=== PATIENT | female | born 1975 | race Caucasian/White ===

== ENCOUNTER 2019-03-13 09:19 | Outpatient (CLI) | payer MEDICAID ==
--- NOTE | 2019-03-13 17:50 | ANES ---
DATE OF SERVICE: 03/13/2019 INDICATION: Mrs. Osborne is a 43-year-old female patient, referred to the [facility] to us by Angelique Brennan. She is here today for trigger points. Please see the orders for the patient's preprocedure diagnosis as well as ICD-10 code. The risks and benefits of the procedure were explained to the patient. She wished to proceed with trigger point injections. TECHNIQUE: I did find 21 noticeable lumbosacral trigger points. I injected each of these with 1 to 2 mL of 0.5% Sensorcaine. I did inject more than 3 muscle groups. Her vital signs remained stable throughout the procedure and nurse was with me for the entire procedure. There were no anesthesia complications noted. She is going to return in 2 weeks for trigger point injections. She was discharged from the [facility] per protocol. Gavin Sharp CRNA /[id number]
== END 2019-03-13 10:07 | disposition home or self-care (01) ==
LOC: JP.PAIN 09:19
DX: M79.10 Myalgia, unspecified site (principal)
CPT/HCPCS: 20553

== ENCOUNTER 2019-04-16 05:18 | Emergency (ER) | payer MEDICAID ==
[2019-04-16 05:32] VITALS: BP 120/77
[2019-04-16] MEDS ORDERED: Cyclobenzaprine 10 MG Tab PO ONE (05:46)
[2019-04-16] MEDS ORDERED: Ketorolac 60 MG/2 ML SDV IM ONE (05:46)
--- NOTE | 2019-04-16 05:53 | EDM.PDOC ---
ED HPI GENERAL MEDICAL PROBLEM - General Chief Complaint: ENT Problem Stated Complaint: RIGHT NECK/THROAT PAIN Time Seen by Provider: 04/16/19 05:42 Source of Information: Reports: Patient, RN Notes Reviewed History Limitations: Reports: No Limitations - History of Present Illness INITIAL COMMENTS - FREE TEXT/NARRATIVE: 44-year-old female presents emergency department today complaint of right-sided neck pain that radiates up into the ear, she has had this going on for about 1 day. Denies any fevers trauma nausea vomiting shortness of breath chest pain had an event similar to this last year unknown etiology Right Ear Pain Score (Numeric/FACES): 7 - Related Data Allergies Allergy/AdvReac Type Severity Reaction Status Date / Time Penicillins Allergy Unknown Rash Verified 03/13/19 09:44 Home Meds: Home Meds Ibuprofen 600 mg PO BID 11/18/15 [History] Cyclobenzaprine [Flexeril] 10 mg PO TID PRN #20 tab 04/16/19 [Rx] Ketorolac [Toradol] 10 mg PO TID PRN #20 tab 04/16/19 [Rx] Past Medical History Musculoskeletal History: Reports: Arthritis, Fibromyalgia, RA Hematologic History: Reports: Iron Deficiency - Past Surgical History Female Surgical History: Reports: LEEP, Tubal Ligation Musculoskeletal Surgical History: Reports: Shoulder Surgery Social & Family History - Tobacco Use Smoking Status *Q: Never Smoker - Caffeine Use Caffeine Use: Reports: Soda - Recreational Drug Use Recreational Drug Use: No ED ROS GENERAL - Review of Systems Review Of Systems: See Below Constitutional: Reports: No Symptoms HEENT: Reports: Ear Pain Respiratory: Reports: No Symptoms Cardiovascular: Reports: No Symptoms GI/Abdominal: Reports: No Symptoms Musculoskeletal: Reports: Neck Pain ED EXAM, UPPER BACK/NECK PAIN - Physical Exam Exam: See Below Exam Limited By: No Limitations General Appearance: Alert, WD/WN, No Apparent Distress Ears Exam: Normal External Exam, Normal Canal, Hearing Grossly Normal, Normal TMs Nose Exam: Normal Inspection, Normal Mucousa, No Blood Throat/Mouth Exam: Normal Inspection, Normal Lips, Normal Teeth, Normal Gums, Normal Oropharynx, Normal Voice, No Airway Compromise Head Exam: Atraumatic, Normocephalic Neck Exam: Full Range of Motion, Normal Alignment, Normal Inspection, Muscle Spasm, Tenderness (Tenderness right side below the jawline) Cardiovascular/Respiratory: Regular Rate, Rhythm, No M/R/G, Normal Breath Sounds , No Respiratory Distress Course - Vital Signs Last Recorded V/S: Last Vital Signs Temp 95.3 F L 04/16/19 05:31 Pulse 86 04/16/19 05:31 Resp 16 04/16/19 05:31 BP 120/77 04/16/19 05:31 Pulse Ox 96 04/16/19 05:31 - Orders/Labs/Meds Meds: Medications Discontinued Medications Generic Name Dose Route Start Last Admin Trade Name Freq PRN Reason Stop Dose Admin Cyclobenzaprine HCl 10 mg 04/16/19 05:46 Flexeril PO 04/16/19 05:47 ONETIME ONE Ketorolac Tromethamine 60 mg 04/16/19 05:46 Toradol IM 04/16/19 05:47 ONETIME ONE Departure - Departure Time of Disposition: 05:52 Disposition: Home, Self-Care 01 Condition: Fair Clinical Impression: Neck pain - Discharge Information Prescriptions: Cyclobenzaprine [Flexeril] 10 mg PO TID PRN #20 tab PRN Reason: Pain Ketorolac [Toradol] 10 mg PO TID PRN #20 tab PRN Reason: Pain Instructions: Musculoskeletal Pain Referrals: PCP,None [Primary Care Provider] - Additional Instructions: Use Toradol as needed for pain control, use Flexeril as needed for muscle spasm, Please followup with your primary care provider in 3-5 days if not better, please call return to the emergency department with worsening of symptoms. - Assessment/Plan Plan: Assessment Acuity = acute Site and laterality = neck pain right sided Etiology = unclear etiology Manifestations = none Location of injury = Home Lab values = none Plan Treated combination Toradol and Flexeril prescription written for Toradol 10 mg by mouth 3 times a day when necessary total #20 Flexeril 10 mg by mouth 3 times a day total #20 medications faxed to [facility] follow-up primary care 2 to 3 days if no improvement This note was dictated using [employer] voice recognition software please call with any questions on syntax or grammar.
== END 2019-04-16 06:09 | disposition home or self-care (01) ==
LOC: JP.ED 05:18
DX: M54.2 Cervicalgia (principal); M62.838 Other muscle spasm; Z98.51 Tubal ligation status; M19.90 Unspecified osteoarthritis, unspecified site; M06.9 Rheumatoid arthritis, unspecified; Z88.0 Allergy status to penicillin
CPT/HCPCS: 96372; 99283; A9270; J1885

== ENCOUNTER 2021-04-17 04:13 | Emergency (ER) | payer OTHER, MEDICAID ==
[2021-04-17] MEDS ORDERED: Bacitracin Oint 1 GM U/D Packet TOP ONE (04:19)
--- NOTE | 2021-04-17 04:51 | EDM.PDOC ---
ED HPI GENERAL MEDICAL PROBLEM - General Chief Complaint: Laceration Stated Complaint: CUT LEFT WRIST OPEN Time Seen by Provider: 04/17/21 04:19 Source of Information: Reports: Patient History Limitations: Reports: No Limitations - History of Present Illness INITIAL COMMENTS - FREE TEXT/NARRATIVE: Jasmine is a 46-year-old female presenting to the ED for evaluation of a deep laceration to the dorsal left thumb. Patient was working at [employer] and was cutting a zip tie with a utility knife when the knife slipped causing her to deeply incised the dorsal left thumb. The laceration measures 5.4 cm and does appear to cut through one of the digital arteries on the dorsal thumb. It does appear to have come in close contact with the tendon sheath but not cut the tendon. Patient has full range of motion and good distal sensation of the thumb. Capillary refill is normal. There was a copious amount of bleeding so a tourniquet was applied to achieve hemostasis. Left Hand Pain Score (Numeric/FACES): 5 - Related Data Allergies Allergy/AdvReac Type Severity Reaction Status Date / Time Penicillins Allergy Unknown Rash Verified 04/17/21 04:21 Home Meds: Home Meds NK [No Known Home Meds] 04/17/21 [History] Past Medical History - Past Health History Medical/Surgical History: Denies Medical/Surgical History HEENT History: Reports: Impaired Vision [employer] S[employer]KER History: Reports: Musculoskeletal History: Reports: Arthritis, Fibromyalgia, RA Endocrine/Metabolic History: Reports: Obesity/BMI 30+ Hematologic History: Reports: Iron Deficiency - Infectious Disease History Infectious Disease History: Reports: Chicken Pox - Past Surgical History Female Surgical History: Reports: LEEP, Tubal Ligation Musculoskeletal Surgical History: Reports: Shoulder Surgery Other Musculoskeletal Surgeries/Procedures:: triger point injections cortisone shots foot surgery shoulder surgery Social & Family History - Tobacco Use Tobacco Use Status *Q: Never Tobacco User Second Hand Smoke Exposure: No - Caffeine Use Caffeine Use: Reports: Soda - Recreational Drug Use Recreational Drug Use: No ED ROS GENERAL - Review of Systems Review Of Systems: See Below Constitutional: Reports: No Symptoms Respiratory: Reports: No Symptoms Cardiovascular: Reports: No Symptoms Musculoskeletal: Reports: Hand Pain (Deep laceration measuring 5.4 cm on the dorsal left thumb) Skin: Reports: Wound (Deep laceration dorsal left thumb) Neurological: Reports: No Symptoms ED EXAM, SKIN/RASH Exam: See Below Exam Limited By: No Limitations General Appearance: Alert, Anxious, Mild Distress Cardiovascular: Normal Peripheral Pulses, Regular Rate, Rhythm Peripheral Pulses: 2+: Radial (L) Extremities: Normal Range of Motion, Other (5.4 cm laceration on the dorsal left thumb going into the thenar eminence. Does appear that one of the dorsal digital arteries was transected. The laceration comes up to the tendon sheath but does not go into it.) Neurological: Alert, Oriented, No Motor/Sensory Deficits (Distal sensation of the left thumb was intact prior to injecting lidocaine into the wound.) Skin: Wound/Incision (5.4 cm laceration dorsal left thumb going into the thenar eminence and across the PIP. This does look like a transected one of the digital arteries in the dorsal thumb.) ED SKIN PROCEDURES - Laceration/Wound Repair Left Proximal Dorsal Digit - 1st (Thumb) Appearance: Muscle, Clean Distal NVT: Neuro & Vascular Intact, No Tendon Injury Anesthetic Type: Local Local Anesthesia - Lidocaine (Xylocaine): 1% Plain Local Anesthetic Volume: 5cc Skin Prep: Saline Exploration/Debridement/Repair: Wound Explored, In a Bloodless Field, Explored to Base Closed with: Sutures Lac/Wound length In cm: 5.4 Suture Size: 3-0 # of Sutures: 10 Suture Type: Nylon Suture Size: 5-0 # of Sutures: 1 (1 suture was used to tie off the proximal segment of the digital artery that was transected. The distal segment could not be found. Bleeding was under control after this was ligated with the pursestring suture.) Repaired with: Vicryl Suture Size: 5-0 # of Sutures: 1 (A single running suture with Vicryl was used to close the fascial layer below the thenar eminence by the joint.) Repaired with: Vicryl Sterile Dressing Applied: Provider Tetanus Status Addressed: Yes Complications: No Course - Vital Signs Last Recorded V/S: Last Vital Signs Temp 36.6 C 04/17/21 04:33 Pulse 74 04/17/21 04:33 Resp 16 04/17/21 04:33 BP 138/104 H 04/17/21 04:33 Pulse Ox 96 04/17/21 04:33 - Orders/Labs/Meds Meds: Medications Discontinued Medications Generic Name Dose Route Start Last Admin Trade Name Freq PRN Reason Stop Dose Admin Bacitracin 1 dose 04/17/21 04:19 04/17/21 04:24 Bacitracin Oint 1 Gm U/D Packet TOP 04/17/21 04:20 1 dose ONETIME ONE Administration Lidocaine HCl 5 ml 04/17/21 04:19 04/17/21 04:24 Lidocaine 1% 5 Ml Sdv INJECT 04/17/21 04:20 5 ml ONETIME ONE Administration - Re-Assessments/Exams Free Text/Narrative Re-Assessment/Exam: 04/17/21 04:58 a blood pressure cuff was used and inflated to 200 mmHg to allow for hemostasis so that the surgical field was clear to identify the transected artery. This was maintained while placing the 3-0 Ethilon closure through the skin. When the cuff was taken down there was no further bleeding. A light coating of bacitracin was applied over the wound and a Telfa dressing was applied and secured with gauze over which Coban was applied. Management of the laceration was discussed. We will put the patient on cephalexin 500 mg 3 times daily for 5 days to prevent infection. She may take Tylenol or ibuprofen for pain control. Sutures will need to be removed in 10 days. Indications return to the ED were discussed. Departure - Departure Time of Disposition: 04:47 Disposition: Home, Self-Care 01 Clinical Impression: Laceration of left thumb Qualifiers: Encounter type: initial encounter Damage to nail status: without damage Foreign body presence: without foreign body Qualified Code(s): S61.012A - Laceration without foreign body of left thumb without damage to nail, initial encounter - Discharge Information Instructions: Laceration Care, Adult, [id number] Referrals: PCP,Unknown [Primary Care Provider] - Forms: ED Department Discharge Care Plan Goals: Please keep the wound clean and dry for least the next 24 hours. Apply a light coating of bacitracin or triple antibiotic ointment to the wound daily with dressing change. No use of the left hand for the next 2 days. Keep the wound clean and dry for the next 10 days. The sutures will need to be removed in 10 days. We are going to put you on an antibiotic to prevent infection called cephalexin that you will take 3 times a day for the next 5 days. This medication is available in the [facility]. You may take Tylenol or ibuprofen for pain but the best thing is to keep the left hand elevated above the level of the heart to keep the swelling down. Sepsis Event Note (ED) - Evaluation Sepsis Screening Result: No Definite Risk - Focused Exam Vital Signs: Vital Signs Temp Pulse Resp BP Pulse Ox 04/17/21 04:33 36.6 C 74 16 138/104 H 96
[2021-04-17 04:53] VITALS: BP 123/84; PULSE 59
== END 2021-04-17 05:00 | disposition home or self-care (01) ==
LOC: JP.ED 04:13
DX: S61.012A Laceration without foreign body of left thumb without damage to nail, initial encounter (principal); E66.9 Obesity, unspecified; Z68.41 Body mass index [BMI] 40.0-44.9, adult; Z88.0 Allergy status to penicillin; W26.8XXA Contact with other sharp object(s), not elsewhere classified, initial encounter; Y99.0 Civilian activity done for income or pay
CPT/HCPCS: 12042; 13121; 99282-25; 99283

== ENCOUNTER 2021-09-13 11:06 | Day surgery (SDC) | payer MEDICAID ==
[2021-09-13] MEDS ORDERED: Midazolam 1 MG/ML 2 ML SDV ONE (11:09)
[2021-09-13] MEDS ORDERED: Propofol 200 MG/20 ML SDV ONE ×3 (11:09→14:24)
[2021-09-13] MEDS ORDERED: fentaNYL 100 MCG/2 ML SDV ONE (11:09)
[2021-09-13] MEDS ORDERED: Lactated Ringers 1,000 ML IV SCH ×2 (12:00→14:45)
[2021-09-13] MEDS ORDERED: Clindamycin Phosphate 900 MG in Sodium Chloride 0.9% 100 ML IV ONE (12:45)
[2021-09-13] MEDS: Bupivacaine 0.5% 50 ML MDV ONE ×2 (12:46→13:20)
[2021-09-13] MEDS ORDERED: Acetaminophen/HYDROcodone 325-5 MG Tab PO ONE (15:11)
[2021-09-13] MEDS ORDERED: hydrOXYzine HCl 25 MG Tab PO ONE (15:11)
[2021-09-13 16:05] VITALS: BP 111/68; PULSE 47
--- NOTE | 2021-09-13 22:01 | OR ---
DATE OF PROCEDURE: 09/13/2021 SURGEON: Cesar Adams DPM LUMBER BUYER: None. PREOPERATIVE DIAGNOSIS: Painful hardware, left foot. POSTOPERATIVE DIAGNOSIS: Painful hardware, left foot. PROCEDURE: Hardware removal, left foot. ANESTHESIA: Local with IV sedation. HEMOSTASIS: Obtained with an ankle tourniquet on the left ankle at 250 mmHg. ESTIMATED BLOOD LOSS: 5 mL. MATERIALS: None. INJECTABLES: A total of 20 mL of Marcaine 0.5% plain were injected in the left foot. PATHOLOGY: None. CONDITION: Stable. INDICATIONS FOR SURGERY: Painful hardware, lateral aspect of the left foot that was unresponsive to conservative measures. PROCEDURE IN DETAIL: Patient was brought to the operating room, placed on the operating table in supine position. Following IV sedation, anesthesia was obtained with a total of 20 mL Marcaine 0.5% plain. The left foot was scrubbed, prepped, and draped in usual aseptic manner, raised to 60 degrees for hemostasis, and exsanguinated using an Esmarch bandage. Tourniquet was inflated. Foot was lowered to the table. Skin incision was made on the lateral aspect of the left foot through the old incision for the Bashir osteotomy. Incisions were deepened through subcutaneous tissues with care taken to identify and retract all vital neurovascular structures and avoid the peroneus longus and peroneus brevis. The plate was identified and then all 4 screws were removed and the plate was removed. We took fluoroscopic image to make sure the plate had been removed, then flushed out the incision with copious amounts of sterile saline. Deep closure and subcutaneous closure were achieved with 2-0 Vicryl and skin closure was achieved with 3-0 nylon in a horizontal mattress configuration. Then, the foot was dressed with Xeroform, 4x4s, Kerlix, and Raffi. The patient was returned to recovery room with vital signs stable and vascular status intact to both feet. Patient was given instructions to rest, ice, and elevate the left foot, maintain strict heel weightbearing only on the left foot for the next 2 weeks. Patient will return to clinic in 1 week for dressing change, and in [address] Adams to have suture removed. The patient was told to go to the emergency room immediately if she has any nausea, vomiting, fever, chills, chest pain, calf pain, or difficulty breathing. Cesar Adams DPM /[id number]
== END 2021-09-13 16:29 | disposition home or self-care (01) ==
LOC: JP.SDS 11:06
PROVIDERS: ATTEND Podiatrist Foot & Ankle Surgery
DX: T84.84XA Pain due to internal orthopedic prosthetic devices, implants and grafts, initial encounter (principal); M06.9 Rheumatoid arthritis, unspecified; G47.00 Insomnia, unspecified; E66.9 Obesity, unspecified; Z98.890 Other specified postprocedural states; Z79.899 Other long term (current) drug therapy; Z88.0 Allergy status to penicillin; Z68.38 Body mass index [BMI] 38.0-38.9, adult
CPT/HCPCS: 20680; A9270; J2250; J2704; J3010; J3490; J7120